=== PATIENT | female | born 1985 | race Two or more races ===

== ENCOUNTER 2021-02-12 08:17 | Inpatient (IN) | payer OTHER ==
[~2021-02-12] VITALS: Ht 165.1 cm; Wt 3.6 kg
[2021-02-12] MEDS ORDERED: PRENATAL TABLE1 EAC1 PO (09:16)
[2021-02-12] MEDS ORDERED: ADULT LOW DOSE81 M1 PO (09:18)
[2021-02-12] MEDS ORDERED: IRON325 MG PO (09:19)
== END 2021-02-15 13:47 | disposition home or self-care (01) | DRG 788 ==
LOC: LDR 08:17 → OB/GYN 08:17 → O/R 14:56 → OB/GYN 15:48
PROVIDERS: ADMIT Specialist; ATTEND Specialist
PROC: 4A1HXFZ Monitoring of Products of Conception, Cardiac Rhythm, External Approach (ICD-10-PCS; 2021-02-12)
PROC: 10D00Z1 Extraction of Products of Conception, Low, Open Approach (ICD-10-PCS; principal; 2021-02-12 15:00)
DX: O64.1XX0 Obstructed labor due to breech presentation, not applicable or unspecified (principal); Z3A.39 39 weeks gestation of pregnancy; Z37.0 Single live birth; Z20.822 Contact with and (suspected) exposure to COVID-19

== ENCOUNTER 2023-01-08 12:15 | Inpatient (IN) | payer OTHER ==
[~2023-01-08] VITALS: Ht 165.1 cm; Wt 3.6 kg
[~2023-01-08 12:15] MED LIST: ADULT LOW DOSE81 M1 PO; IRON325 MG PO; PRENATAL TABLE1 EAC1 PO
== END 2023-01-11 16:22 | disposition home or self-care (01) | DRG 788 ==
LOC: O/R 01-09 06:07 → OB/GYN 01-09 12:00
PROVIDERS: ADMIT Specialist; ATTEND Specialist
PROC: 4A1HXCZ Monitoring of Products of Conception, Cardiac Rate, External Approach (ICD-10-PCS; 2023-01-09)
PROC: 10D00Z1 Extraction of Products of Conception, Low, Open Approach (ICD-10-PCS; principal; 2023-01-09 12:00)
DX: O34.211 Maternal care for low transverse scar from previous cesarean delivery (principal); Z3A.38 38 weeks gestation of pregnancy; Z37.0 Single live birth; Z20.822 Contact with and (suspected) exposure to COVID-19

== ENCOUNTER 2024-12-15 16:31 | Inpatient (IN) | payer OTHER ==
[~2024-12-15] VITALS: Ht 165.1 cm; Wt 86.2 kg
[2024-12-15 18:14] VITALS: BP 124/73
[2024-12-15 19:16] LABS: HEMOGLOBIN 11.1 g/dL (12.0-15.00); MEAN CELL VOLUME 85.8 fL (80.00-100.00); MEAN CORPUSCULAR HGB CONC 32.6 g/dl (32.0-36.0); PLATELET COUNT 233 K/uL (150-450); RED BLOOD COUNT 3.96 M/uL (4.00-6.00); RED CELL DISTRIBUTION WIDTH 16.8 % (11.5-14.5)
[2024-12-15 19:36] LABS: INR < 0.93; PARTIAL THROMBOPLASTIN TIME 25.9 SECONDS (22.0-34.0); PROTHROMBIN TIME 10.2 SECONDS (9.0-11.5)
[2024-12-15 19:41] LABS: BILIRUBIN TOTAL 0.37 mg/dL (0.3-1.2); CALCIUM 9.3 mg/dL (8.5-10.1); CREATININE SERUM 0.65 mg/dL (0.55-1.02); GFR 101.47; GLOBULINA 3.8 G/DL (2.4-3.5); POTASSIUM 4.17 mEq/L (3.5-5.1); TOTAL PROTEIN 6.8 gm/dL (6.4-8.2)
[2024-12-15] MEDS ORDERED: IRON IV (19:48)
[2024-12-15] MEDS ORDERED: RINGERS SOLUTION,LACTATED 1,000 ML IV SCH (23:15)
[2024-12-15 23:25] VITALS: BP 126/71
[2024-12-16] VITALS (7 sets, daily range): BP systolic 112–133; BP diastolic 60–87
[2024-12-16] MEDS ORDERED: OXYTOCIN 500 ML IV ONE (08:30)
[2024-12-16] MEDS ORDERED: TERBUTALINE SULFATE 1 MG/ML AMPUL ONE (12:57)
[2024-12-16] MEDS ORDERED: CEFAZOLIN SODIUM 1,000 MG VIAL ONE (12:59)
[2024-12-16] MEDS ORDERED: CARBOPROST TROMETHAMINE 250 MCG/ML AMPUL IM ONE (12:59)
[2024-12-16] MEDS ORDERED: METHYLERGONOVINE MALEATE 0.2 MG/ML AMPUL ONE (12:59)
[2024-12-16] MEDS ORDERED: OXYTOCIN 20 UNITS/1000ML RL PIGGYBAG IV ONE (13:06)
[2024-12-16] MEDS ORDERED: CHLORHEXIDINE GLUCONATE 120 ML BOTTLE TOP ONE (13:06)
[2024-12-16] MEDS ORDERED: ERYTHROMYCIN BASE OPHT 1GM EACH TUBE OP ONE ×2 (13:06→15:30)
[2024-12-16] MEDS ORDERED: LIDOCAINE HCL 1% 10ML VIAL ONE (13:06)
[2024-12-16] MEDS ORDERED: OXYTOCIN 1,000 ML IV SCH (15:15)
[2024-12-16] MEDS ORDERED: IBUprofen 800 MG TABLET PO PRN (15:15)
[2024-12-16] MEDS ORDERED: CHLORHEXIDINE GLUCONATE 120 ML BOTTLE TP SCH (15:15)
[2024-12-16] MEDS ORDERED: LIDOCAINE HCL 1% 10ML VIAL IJ ONE (15:30)
[2024-12-16] MEDS ORDERED: CEFAZOLIN SODIUM 1,000 MG VIAL IV ONE (15:30)
[2024-12-16] MEDS ORDERED: DOCUSATE SODIUM 100MG CAP PO SCH (17:00)
[2024-12-17 01:39] VITALS: BP 105/69
[2024-12-17 07:04] LABS: HEMATOCRIT 26.3 % (36.0-45.00); MEAN CELL VOLUME 85.7 fL (80.00-100.00); MEAN CORPUSCULAR HEMOGLOBIN 29.3 pg (27.00-32.0); MEAN CORPUSCULAR HGB CONC 34.2 g/dl (32.0-36.0); PLATELET COUNT 169 K/uL (150-450); RED BLOOD COUNT 3.07 M/uL (4.00-6.00); RED CELL DISTRIBUTION WIDTH 17.3 % (11.5-14.5)
[2024-12-17 07:36] VITALS: BP 113/71
[2024-12-17 16:26] VITALS: BP 118/73
[2024-12-18 00:09] VITALS: BP 107/76
[2024-12-18 09:04] VITALS: BP 110/76
== END 2024-12-18 13:03 | disposition home or self-care (01) | DRG 807 ==
LOC: LDR 16:31 → OB/GYN 12-16 15:37
PROVIDERS: ADMIT Obstetrics & Gynecology; ATTEND Obstetrics & Gynecology
PROC: 4A1HXCZ Monitoring of Products of Conception, Cardiac Rate, External Approach (ICD-10-PCS; 2024-12-15)
PROC: 10E0XZZ Delivery of Products of Conception, External Approach (ICD-10-PCS; principal; 2024-12-16)
PROC: 0KQM0ZZ Repair Perineum Muscle, Open Approach (ICD-10-PCS; 2024-12-16)
DX: O70.1 Second degree perineal laceration during delivery (principal); Z37.0 Single live birth; Z3A.37 37 weeks gestation of pregnancy